=== PATIENT | female | born 1990 | race Caucasian/White ===

== ENCOUNTER 2018-09-02 21:43 | Emergency (ER) | payer OTHER ==
[~2018-09-02] VITALS: Ht 165.1 cm; Wt 99.8 kg
[~2018-09-02 21:43] MED LIST: ALBU90OI INH; AMOX500 PO; Afrin15 ML; Augmentin 875-1 EACH PO; BIRTH CONTROL; Bactrim Ds Tab1 EACH PO; Benadryl 50 mg50 MG PO; CEPH500 PO; CIPR500 PO; CITA20 PO; CYCL10 PO; Cheratussin AC118 ML PO; Ciloxan5 ML LEFTEYE; Colace100 MG PO; ESOM20 PO; FAMO40 PO; FLUO20 PO; GUAI120S1 PO; HYDACE5 PO; IBUP600 PO; IBUP800; IBUP800 PO; KEFLEX250 MG PO; MONT10T PO; MULVITMINE PO; Mucinex600 MG PO; NAPR500 PO; NITR100CA PO; Norco 5-325 Ta1 EACH PO; OXYACE5T PO; PROC10 PO; PROCODE120 PO; PROM25 PO; PSEU120ER PO; PSEU30 PO; Pepcid20 MG PO; Percocet 10-321 EACH PO; Percocet 5-3251 EACH PO; Prednisone20 MG PO; Prudoxin45 GM EXT; Pseudoephedrine30 MG PO; RANI150 PO; RXNAPNA550 PO; RXPHEN200 PO; SERT50 PO; SPACE CHAMBER1 EACH INH; SPACE CHAMBER1 EACH MC; SULTRIDS PO; SULTRIEL PO; TRAM50 PO; TRAZ50 PO; Ultram50 MG PO; VARE1 PO; Verotin-Gr Cap1 EACH PO; Zofran Odt4 MG SL
[2018-09-02] MEDS ORDERED: Ultram50 MG PO (22:07)
[2018-09-02] MEDS ORDERED: CYCL10 PO (22:07)
== END 2018-09-02 23:16 | disposition home or self-care (01) ==
LOC: ER 21:43
DX: S16.1XXA Strain of muscle, fascia and tendon at neck level, initial encounter (principal); S29.012A Strain of muscle and tendon of back wall of thorax, initial encounter; S39.012A Strain of muscle, fascia and tendon of lower back, initial encounter; V49.40XA Driver injured in collision with unspecified motor vehicles in traffic accident, initial encounter; Z79.899 Other long term (current) drug therapy; G43.909 Migraine, unspecified, not intractable, without status migrainosus; F17.210 Nicotine dependence, cigarettes, uncomplicated
CPT/HCPCS: 72040; 72070; 99284-25

== ENCOUNTER 2018-09-27 22:07 | Emergency (ER) | payer OTHER ==
[~2018-09-27] VITALS: Ht 165.1 cm; Wt 113.4 kg
[2018-09-28] MEDS ORDERED: DIAZ2 PO (00:27)
== END 2018-09-28 01:02 | disposition home or self-care (01) ==
LOC: ER 22:07
DX: S16.1XXA Strain of muscle, fascia and tendon at neck level, initial encounter (principal); F17.210 Nicotine dependence, cigarettes, uncomplicated; V89.2XXA Person injured in unspecified motor-vehicle accident, traffic, initial encounter
CPT/HCPCS: 99283

== ENCOUNTER 2019-08-21 17:45 | Emergency (ER) | payer OTHER ==
[~2019-08-21] VITALS: Ht 165.1 cm; Wt 89.8 kg
[~2019-08-21 17:45] MED LIST changes: +DIAZ2 PO; +Esgic Tablet1 EACH PO
[2019-08-21] MEDS ORDERED: CYCL10 PO (19:46)
[2019-08-22] MEDS ORDERED: Percocet 5-3251 EACH PO (14:05)
[2019-08-22] MEDS ORDERED: IBUP400 PO (14:05)
== END 2019-08-21 19:55 | disposition home or self-care (01) ==
LOC: ER 17:45
DX: M54.5 Low back pain (principal); F17.210 Nicotine dependence, cigarettes, uncomplicated
CPT/HCPCS: 96372; 99283-25; A9270; J1885

== ENCOUNTER 2019-08-22 12:03 | Emergency (ER) | payer OTHER ==
[~2019-08-22] VITALS: Ht 165.1 cm; Wt 89.8 kg
[2019-08-22] MEDS ORDERED: Percocet 5-3251 EACH PO (14:05)
[2019-08-22] MEDS ORDERED: IBUP400 PO (14:05)
== END 2019-08-22 14:15 | disposition home or self-care (01) ==
LOC: ER 12:03
DX: M54.5 Low back pain (principal); Z79.899 Other long term (current) drug therapy; G43.909 Migraine, unspecified, not intractable, without status migrainosus; F17.210 Nicotine dependence, cigarettes, uncomplicated
CPT/HCPCS: 96372; 99283-25; J1170

== ENCOUNTER → 2020-06-03 | Outpatient (CLI) | payer OTHER ==
[~2020-06-03] MED LIST changes: +IBUP400 PO
== END | disposition home or self-care (01) ==
LOC: LAB EV 12:46 → LAB SHORT 12:46
DX: N39.0 Urinary tract infection, site not specified (principal)
CPT/HCPCS: 87077; 87086; 87186

== ENCOUNTER 2023-01-01 14:20 | Emergency (ER) | payer OTHER ==
[~2023-01-01] VITALS: Ht 165.1 cm; Wt 104.3 kg
== END 2023-01-01 17:10 | disposition home or self-care (01) ==
LOC: ER 14:20
DX: R51.9 Headache, unspecified (principal); F17.210 Nicotine dependence, cigarettes, uncomplicated
CPT/HCPCS: J0780; J1200; J7030

== ENCOUNTER 2025-02-24 20:36 | Emergency (ER) | payer OTHER ==
[~2025-02-24] VITALS: Ht 165.1 cm; Wt 102.1 kg
[2025-02-24 20:49] VITALS: BP 132/89
[2025-02-24] MEDS ORDERED: Ketorolac Tromethamine 15mg Vial IM ONE (20:55)
[2025-02-24] MEDS ORDERED: Amoxicillin/Clavulanate K 875 MG Tab PO ONE (20:55)
[2025-02-24] MEDS ORDERED: AMOCLA875 PO (21:46)
[2025-02-27] MEDS ORDERED: AMOX-CLAV 875-1 EAC5 PO ×2 (15:10)
[2025-02-28] MEDS ORDERED: NICO21TP TOP ×2 (11:30)
[2025-02-28] MEDS ORDERED: VISBIOME 112.51 EACH PO ×2 (11:30)
== END 2025-02-24 21:50 | disposition home or self-care (01) ==
LOC: ER 20:36
DX: S61.452A Open bite of left hand, initial encounter (principal); Z79.2 Long term (current) use of antibiotics; W55.01XA Bitten by cat, initial encounter
CPT/HCPCS: 96372; 99283-25; A9270; J1885

== ENCOUNTER 2025-02-26 10:34 | Observation (INO) | payer BC, OTHER ==
[~2025-02-26] VITALS: Ht 165.1 cm; Wt 102.1 kg
[~2025-02-26 10:34] MED LIST changes: +AMOCLA875 PO
[2025-02-26 11:33] LABS: BASOPHILS ABSOLUTE AUTO 0.09 K/mm3 (0.00-0.23); BASOPHILS PERCENT AUTO 1 % (0-2); EOSINOPHILS ABSOLUTE AUTO 0.17 K/mm3 (0.00-0.68); EOSINOPHILS PERCENT AUTO 2 % (0-6); Hematocrit 40.7 % (33.0-51.0); Hemoglobin 13.8 g/dL (11.5-16.0); IMMATURE GRAN ABSOLUTE AUTO 0.01 K/mm3 (0.00-0.10); IMMATURE GRAN PERCENT AUTO 0 % (0-1); LYMPHOCYTES PERCENT AUTO 30 % (21-46); MONOCYTES ABSOLUTE AUTO 0.58 K/mm3 (0.16-1.47); MONOCYTES PERCENT AUTO 7 % (4-13); Mean Corpuscular HGB 29.9 pg (26.0-34.0); Mean Corpuscular HGB Conc 33.9 g/dL (31.5-36.5); Mean Corpuscular Volume 88 fL (80-100); Mean Platelet Volume 10.4 fL (9.1-12.4); NEUTROPHILS ABSOLUTE AUTO 5.31 K/mm3 (1.96-9.15); NEUTROPHILS PERCENT AUTO 61 % (41-73); Platelet Count 235 K/mm3 (150-400); RDW Coefficient Variation 12.6 % (11.7-14.2); Red Blood Cell Count 4.61 M/mm3 (3.80-5.20); White Blood Cell Count 8.76 K/mm3 (4.00-11.30)
[2025-02-26 12:21] LABS: Albumin, Blood 3.6 g/dL (3.4-5.0); Albumin/Globulin Ratio 1.1 (0.8-1.8); Bilirubin, Total 0.4 mg/dL (0.1-1.0); Bun/Creatinine Ratio 13.7 (12.0-20.0); Calcium, Blood 8.2 mg/dL (8.5-10.1); Creatinine, Blood 0.66 mg/dL (0.40-1.00); Globulin, Blood 3.2 g/dL (2.2-4.0); Total Protein, Blood 6.8 g/dL (6.4-8.2)
[2025-02-26] MEDS ORDERED: Clindamycin 600mg in D5W 50 ML IV ONE (12:30)
[2025-02-26] MEDS ORDERED: Ketorolac Tromethamine 15mg Vial IV ONE (13:25)
[2025-02-26] MEDS ORDERED: Lidocaine 2%-Epineph 1:100000 20 ML MDV ONE (15:16)
[2025-02-26] MEDS ORDERED: Magnesium Hydroxide Conc 10 ML UDC PO PRN (15:50)
[2025-02-26] MEDS ORDERED: Ampicillin Sod/Sulbactam Sod 3 GM in NS 100 ML IV SCH (16:00)
[2025-02-26] MEDS ORDERED: Ketorolac Tromethamine 15mg Vial IV PRN (17:15)
[2025-02-26] MEDS ORDERED: LORazepam 2 MG/ML 1ML Injection IV ONE (17:45)
[2025-02-26 18:17] VITALS: BP 131/95
[2025-02-26] MEDS ORDERED: Nicotine 21 MG PATCH TOP SCH (18:50)
[2025-02-26 19:40] VITALS: BP 132/83
[2025-02-26] MEDS ORDERED: Lactobacil 2-S.Thermo-Bifido 1 1 Cap PO SCH (21:00)
[2025-02-26] MEDS ORDERED: Famotidine 20 MG Tab PO SCH (21:00)
--- NOTE | 2025-02-27 03:59 | NUR ---
SHIFT SUMMARY ADMITTED FOR LEFT HAND CELLULITIS. FULL CODE. IV ANTIB RX ARE SCHEDULED. ORTHO CONSULT IS DR. LUGO. ON REGULAR DIET. HOWEVER, I HAVE KEPT HER NPO SINCE MIDNIGHT IN CASE A PROCEDURE IS INTENDED TODAY. SHE IS A&O X4, INDEPENDENT, ON RA. NICOTINE PATCH IN PLACE.
[2025-02-27 05:14] VITALS: BP 115/77
[2025-02-27 07:35] VITALS: BP 107/76
[2025-02-27] MEDS ORDERED: NS 250 ML IV PRN ×2 (13:00→23:55)
[2025-02-27] MEDS ORDERED: AMOX-CLAV 875-1 EAC5 PO (15:10)
[2025-02-27 16:55] VITALS: BP 123/93
--- NOTE | 2025-02-27 18:22 | NUR ---
NO CHANGES, NPO AT MIDNIGHT, SURGERY TO EVALUATE TOMORROW, REDENESS AND SWELLING LESS, PATIENT ALERT AND ORIENTED, EASILY MAKES NEEDS KNOWN, DENIES NEEDS FOR PAIN MEDS, NICOTINE PATCH TO RIGHT ANTERIOR SHOULDER. CALL LIGHT WITH IN REACH, WILL RELAY TO PM RN
[2025-02-27 19:20] VITALS: BP 123/81
--- NOTE | 2025-02-28 04:22 | NUR ---
SHIFT SUMMARY ADMITTED FOR LEFT HAND CELLULITIS. FULL CODE. HAS BEEN NPO SINCE MIDNIGHT THIS SHIFT IN CASE OF ANY PROCEDURE. ORTHO CONSULT IS DR. LUGO. IV ANTIB RX ARE SCHEDULED. PAIN MEDICATION GIVEN THIS SHIFT. SHE IS A&O X4, ON RA, INDEPENDENT.
[2025-02-28 06:04] VITALS: BP 118/80
[2025-02-28 07:22] VITALS: BP 117/86
[2025-02-28] MEDS ORDERED: VISBIOME 112.51 EACH PO (11:30)
[2025-02-28] MEDS ORDERED: NICO21TP TOP (11:30)
== END 2025-02-28 13:11 | disposition home or self-care (01) ==
LOC: ER 10:34 → ERHOLD 10:35 → MEDS 10:35 → ENPENDDIS 02-28 10:27 → MEDS 02-28 13:11
PROVIDERS: Physician Assistant; ADMIT Internal Medicine
DX: L03.114 Cellulitis of left upper limb (principal); S61.452A Open bite of left hand, initial encounter; W55.01XA Bitten by cat, initial encounter; F17.210 Nicotine dependence, cigarettes, uncomplicated; G43.909 Migraine, unspecified, not intractable, without status migrainosus; Z79.899 Other long term (current) drug therapy; Z90.710 Acquired absence of both cervix and uterus; Z90.49 Acquired absence of other specified parts of digestive tract
CPT/HCPCS: 73201; 76882; 80053; 83605; 85025; 85651; 86140; 96365-59; 96366; 96375-59; 96376; 99284-25; A9270; G0378; J0295; J1885; Q9967